=== PATIENT | female | born 1970 | race Asian ===

== ENCOUNTER 2017-05-01 20:53 | Emergency (ER) | payer OTHER ==
--- NOTE | 2017-05-01 21:28 | ED Physician Documentation ---
History of Present Illness - Stated complaint Stated Complaint: DIZZINESS,COLD - Chief complaint Chief Complaint: Neuro - History obtained from History obtained from: Patient, Family () - History of Present Illness Timing: Other (46-year-old woman who chronically gets spinning type dizziness briefly when she is on her menses. She has Regular menses without a heavy flow. This is happened with almost every menses, but the last few days she has had it longer and more significantly than normal, today got a spinning type dizziness that was brief while eating lunch, not associated with turning her head. She got nauseous but did not vomit. She does have some ear fullness and tinnitus as well as sinus congestion and pressure as well without fever.) Review of Systems Constitutional: denies: Fever, Chills Eyes: denies: Loss of vision, Decreased vision Ears: reports: Tinnitus/ringing. denies: Loss of hearing, Ear pain, Drainage/ discharge, Foreign body Nose: reports: Rhinorrhea / runny nose, Congestion, Sinus pressure / pain Throat: denies: Sore throat GI: reports: Nausea. denies: Abdominal Pain, Vomiting, Diarrhea PD PAST MEDICAL HISTORY - Present Medications Home Medications: Ambulatory Orders Medication Instructions Recorded Confirmed Amoxicillin 500 mg PO TID #30 capsule 05/01/17 Ferrous Sulfate 325 mg PO DAILY #90 tablet 05/01/17 Levothyroxine Sodium [Synthroid] 50 mcg PO DAILY 05/01/17 05/01/17 Lisinopril 10 mg PO DAILY 05/01/17 05/01/17 Meclizine [Antivert] 25 mg PO Q6H PRN #20 tablet 05/01/17 - Allergies Allergies/Adverse Reactions: Allergies Allergy/AdvReac Type Severity Reaction Status Date / Time No Known Drug Allergies Allergy Verified 05/01/17 21:06 PD ED PE NORMAL - Vitals Vital signs reviewed: Yes - General General: Alert and oriented X 3, No acute distress - HEENT HEENT: PERRL, EOMI, Other (She has sinus tenderness on the left maxillary sinus and sclerosis of both TMs) - Neck Neck: Supple, no meningeal sign, No bony TTP - Cardiac Cardiac: RRR, No murmur - Respiratory Respiratory: No respiratory distress, Clear bilaterally - Abdomen Abdomen: Normal bowel sounds, Soft, Non tender - Back Back: No CVA TTP, No spinal TTP - Neuro Neuro: Alert and oriented X 3, car knocker 2-12 intact, No motor deficit, No sensory deficit, Normal speech, Other (Normal finger to nose and heel to beltran testing, NIH stroke scale of 0.) - Psych Psych: Normal mood, Normal affect Results - Vitals Vitals: Vital Signs - 24 hr 05/01/17 05/01/17 21:04 22:23 Temperature 36.0 C L 36.8 C Heart Rate 67 67 Respiratory 16 14 Rate Blood Pressure 155/95 H 126/77 O2 Saturation 100 100 Oxygen O2 Source Room air - Labs Labs: Laboratory Tests 05/01/17 05/01/17 05/01/17 21:41 21:41 22:15 WBC 6.3 RBC 4.26 Hgb 10.5 L Hct 32.5 L MCV 76.4 L MCH 24.7 L MCHC 32.4 RDW 14.7 Plt Count 263 MPV 8.1 Neut # 2.8 Lymph # 2.8 [place] # 0.4 Eos # 0.2 Baso # 0.0 Absolute Nucleated RBC 0.00 Nucleated RBCs 0.1 Sodium 139 Potassium 3.6 Chloride 108 Carbon Dioxide 23 Anion Gap 8.0 BUN 13 Creatinine 0.8 Estimated GFR (MDRD) 77 L Glucose 99 Calcium 9.4 Total Bilirubin 0.4 AST 21 ALT 19 Alkaline Phosphatase 53 Total Protein 7.9 Albumin 4.1 Globulin 3.8 Albumin/Globulin Ratio 1.1 Lipase 70 H Urine Color YELLOW Urine Clarity HAZY Urine pH 5.5 Ur Specific [place] <=1.005 Urine Protein NEGATIVE Urine Glucose (UA) NEGATIVE Urine Ketones NEGATIVE Urine Occult Blood LARGE H Urine Nitrite NEGATIVE Urine Bilirubin NEGATIVE Urine Urobilinogen 0.2 (NORMAL) Ur Leukocyte Esterase NEGATIVE Urine RBC 6-10 H Urine WBC 0-3 Ur Squamous Epith Cells FEW Squamous Urine Bacteria None Seen Ur Microscopic Review INDICATED Urine Culture Comments NOT INDICATED Urine HCG, Qual NEGATIVE PD MEDICAL DECISION MAKING - ED course ED course: She has peripheral vertigo by history and physical probably related to sinus/ ear infection. She is found to have anemia, probably chronic iron deficiency from the pattern. Likely incidental. The patient and family were counseled as to the diagnosis and need for follow- up. I counseled the patient with regard to signs and symptoms that would necessitate an urgent reevaluation in the emergency department. They understand they are welcome to return at any time if worse or if not improving as expected. This document was made in part using voice recognition software. While efforts are made to proofread this documents, sound alike and grammatical errors may occur. Departure - Departure Disposition: 01 Home, Self Care Clinical Impression: Peripheral vertigo involving left ear Sinusitis Qualifiers: Sinusitis location: maxillary Chronicity: acute Recurrence: non-recurrent Qualified Code(s): J01.00 - Acute maxillary sinusitis, unspecified Iron deficiency anemia Qualifiers: Iron deficiency anemia type: unspecified iron deficiency Qualified Code(s): D50.9 - Iron deficiency anemia, unspecified Condition: Good Record reviewed to determine appropriate education?: Yes Instructions: ED Sinusitis Abx Tx, ED Vertigo Unspecified Prescriptions: Amoxicillin 500 mg PO TID #30 capsule Meclizine [Antivert] 25 mg PO Q6H PRN #20 tablet PRN Reason: Dizziness Ferrous Sulfate 325 mg PO DAILY #90 tablet Comments: Call your doctor to arrange a follow-up appointment, make the next available appointment. In the interim, return anytime if worse or if new symptoms develop.
[2017-05-01 21:46] LABS: BASOPHILS % (AUTO) 0.7 %; EOSINOPHILS # (AUTO) 0.2 10^3/uL (0.0-0.7); EOSINOPHILS % (AUTO) 2.4 %; HCT - HEMATOCRIT 32.5 % (37.0-47.0); HGB - HEMOGLOBIN 10.5 g/dL (12.0-16.0); LYMPHOCYTES # (AUTO) 2.8 10^3/uL (1.5-3.5); MEAN CORPUSCULAR HEMOGLOBIN 24.7 pg (27.0-31.0); MEAN CORPUSCULAR HGB CONC 32.4 g/dL (32.0-36.0); MEAN CORPUSCULAR VOLUME 76.4 fL (81.0-99.0); MEAN PLATELET VOLUME 8.1 fL (7.9-10.8); MONOCYTES # (AUTO) 0.4 10^3/uL (0.0-1.0); MONOCYTES % (AUTO) 6.6 %; NEUTROPHILS # (AUTO) 2.8 10^3/uL (1.5-6.6); NEUTROPHILS % (AUTO) 45.3 %; NUCLEATED RED BLOOD CELLS AUTO 0.1 /100WBC; RED BLOOD COUNT 4.26 10^6/uL (4.20-5.40); RED CELL DISTRIBUTION WIDTH 14.7 % (12.0-15.0); UNCORRECTED WHITE BLOOD COUNT 6.3 x10^3/uL; WHITE BLOOD COUNT 6.3 x10^3/uL (4.8-10.8)
[2017-05-01 21:58] LABS: ALBUMIN/GLOBULIN RATIO 1.1 (1.0-2.2); BILIRUBIN,TOTAL 0.4 mg/dL (0.2-1.0); CALCIUM 9.4 mg/dL (8.5-10.3); CREATININE 0.8 mg/dL (0.4-1.0); POTASSIUM 3.6 mmol/L (3.5-5.0); TOTAL PROTEIN 7.9 g/dL (6.7-8.2)
[2017-05-01] MEDS ORDERED: MECLIZINE 12.5 MG TABLET PO STA (22:18)
[2017-05-01] MEDS ORDERED: MECLIZINE 12.5 MG TABLET PO ONE (22:20)
[2017-05-01 22:23] LABS: BILIRUBIN,URINE NEGATIVE (NEGATIVE); PH,URINE 5.5 PH (5.0-7.5)
[2017-05-01 22:24] LABS: UA w/ MICROSCOPIC CHARGE YES
[2017-05-01 22:25] LABS: HCG UR QUAL NEGATIVE
[2017-05-01 22:26] VITALS: BP 126/77
[2017-05-01 22:33] LABS: UR CULTURE IF IND NOT INDICATED; WBC,URINE 0-3 /HPF (0-5)
== END 2017-05-01 22:48 | disposition home or self-care (01) ==
LOC: ED 20:53
DX: H81.392 Other peripheral vertigo, left ear (principal); J01.00 Acute maxillary sinusitis, unspecified; D50.9 Iron deficiency anemia, unspecified
CPT/HCPCS: 36415; 80053; 81001; 81025; 83690; 85025; 99283; A9270; 81003; 87086